=== PATIENT | male | born 1985 | race American Indian/Alaskan Native ===

== ENCOUNTER 2020-06-21 20:29 | Emergency (ER) | payer SELFPAY ==
[2020-06-22] MEDS ORDERED: ACETAMINOPHEN 325 MG TAB ONE (02:46)
[2020-06-22] MEDS ORDERED: ACETAMINOPHEN 325 MG TAB PO ONE (02:47)
[2020-06-22 04:57] VITALS: BP 122/87
[2020-06-22] MEDS ORDERED: dexAMETHasone 20 MG/5 ML VIAL IM ONE (05:49)
[2020-06-22] MEDS ORDERED: KETOROLAC 60 MG/2 ML INJ IM ONE (05:49)
--- NOTE | 2020-06-22 05:54 | Emergency Department Report ---
ED Back Pain/Injury HPI - General Chief Complaint: Back Pain/Injury Stated Complaint: LOWER BACK PAIN LT LEG PAIN Source: patient Limitations: No Limitations - History of Present Illness Initial Comments: Patient is a 34-year-old -[place] male with no past medical history who presents to the ED with complaint of acute onset persistent nontraumatic low back pain that radiates to the left hip and left leg for the last 4 days worse in the last 2 days. Patient states that he has not been able to sleep because of severe pain in the low back and left leg. Patient states that the pain is worse with any movement. Patient denies fall, traumatic injury, heavy lifting, nausea, vomiting, hematuria, testicular pain, dysuria, urinary frequency and urgency, fever, chills, cough, neck pain, numbness and tingling or weakness of lower extremities bilaterally, urinary and bowel incontinence or saddle paresthesia. MD Complaint: back pain (Low back pain that radiates to the left leg) -: Sudden, days(s) (4) Similar Symptoms Previously: No Place: home Radiation: left leg Severity: severe Severity scale (0 -10): 8 Quality: sharp, aching Consistency: constant Improves With: none Worsens With: movement, sitting upright, walking Context: turning/twisting Associated Symptoms: denies other symptoms. denies: confusion, chest pain, numbness, difficulty walking, cough, difficulty urinating, diaphoresis, incontinence, constipation, abdominal pain, loss of appetite, nausea/vomiting, rash, seizure, syncope - Related Data Previous Rx's Medication Instructions Recorded Last Taken Type Ibuprofen [Motrin] 800 mg PO Q8HR PRN #20 tablet 01/19/16 Unknown Rx Naproxen 500 mg PO Q12H PRN #30 tablet 06/22/20 Unknown Rx methOCARBAMOL [Robaxin TAB] 750 mg PO Q8H PRN #30 tablet 06/22/20 Unknown Rx predniSONE [Deltasone] 60 mg PO QDAY #15 tab 06/22/20 Unknown Rx traMADoL [Ultram] 50 mg PO Q6HR PRN #12 tablet 06/22/20 Unknown Rx Allergies Allergy/AdvReac Type Severity Reaction Status Date / Time No Known Allergies Allergy Verified 06/22/20 02:58 ED Review of Systems ROS: Stated complaint: LOWER BACK PAIN LT LEG PAIN Other details as noted in HPI Constitutional: denies: chills, fever Eyes: denies: eye pain, eye discharge, vision change ENT: denies: ear pain, throat pain Respiratory: denies: cough, shortness of breath, wheezing Cardiovascular: denies: chest pain, palpitations Endocrine: no symptoms reported Gastrointestinal: denies: abdominal pain, nausea, diarrhea Genitourinary: denies: urgency, dysuria Musculoskeletal: back pain (Low back pain), arthralgia (Left leg pain). denies: joint swelling Skin: denies: rash, lesions Neurological: denies: headache, weakness, paresthesias Psychiatric: denies: anxiety, depression Hematological/Lymphatic: denies: easy bleeding, easy bruising ED Past Medical Hx - Past Medical History Previous Medical History?: No - Surgical History Past Surgical History?: No - Social History Smoking Status: Light Tobacco Smoker Substance Use Type: None - Medications Home Medications: Home Medications Medication Instructions Recorded Confirmed Last Taken Type Ibuprofen [Motrin] 800 mg PO Q8HR PRN #20 tablet 01/19/16 Unknown Rx Naproxen 500 mg PO Q12H PRN #30 tablet 06/22/20 Unknown Rx methOCARBAMOL [Robaxin TAB] 750 mg PO Q8H PRN #30 tablet 06/22/20 Unknown Rx predniSONE [Deltasone] 60 mg PO QDAY #15 tab 06/22/20 Unknown Rx traMADoL [Ultram] 50 mg PO Q6HR PRN #12 tablet 06/22/20 Unknown Rx ED Physical Exam - General Limitations: No Limitations General appearance: alert, in no apparent distress - Head Head exam: Present: atraumatic, normocephalic, normal inspection - Eye Eye exam: Present: normal appearance, PERRL, EOMI Pupils: Present: normal accommodation - ENT ENT exam: Present: normal exam, normal orophraynx, mucous membranes moist, TM's normal bilaterally, normal external ear exam - Neck Neck exam: Present: normal inspection, full ROM - Respiratory Respiratory exam: Present: normal lung sounds bilaterally. Absent: respiratory distress, wheezes, rales, rhonchi, chest wall tenderness, accessory muscle use, decreased breath sounds, prolonged expiratory - Cardiovascular Cardiovascular Exam: Present: regular rate, normal rhythm, normal heart sounds. Absent: systolic murmur, diastolic murmur, rubs, gallop - GI/Abdominal GI/Abdominal exam: Present: soft, normal bowel sounds. Absent: tenderness, guarding, rebound, hyperactive bowel sounds, hypoactive bowel sounds, organomegaly - Extremities Exam Extremities exam: Present: normal inspection, full ROM, tenderness (Palpable left hip and knee tenderness), normal capillary refill - Back Exam Back exam: Present: normal inspection, full ROM, tenderness (Palpable lumbosacral paraspinal musculoskeletal tenderness), muscle spasm, paraspinal tenderness. Absent: CVA tenderness (L), vertebral tenderness - Neurological Exam Neurological exam: Present: alert, oriented X3, CN II-XII intact, normal gait, reflexes normal - Psychiatric Psychiatric exam: Present: normal affect, normal mood - Skin Skin exam: Present: warm, dry, intact, normal color. Absent: rash ED Course Vital Signs 06/21/20 06/22/20 23:16 02:49 Temperature 97.7 F Pulse Rate 86 Respiratory 18 18 Rate Blood Pressure 122/87 O2 Sat by Pulse 98 Oximetry ED Medical Decision Making - Medical Decision Making This is a 34-year-old -[place] male with no past medical history who presents to the ED with complaint of acute onset persistent nontraumatic low back pain that radiates to the left hip and left leg for the last 4 days worse in the last 2 days. Patient states that he has not been able to sleep because of severe pain in the low back and left leg. Patient states that the pain is worse with any movement. In the ED, patient is alert and oriented x3 and is not in distress. Patient was treated for pain in the ED and based on the history and physical exam findings, the patient was discharged home on pain medications and advised to follow-up with his primary care physician in 7 to 10 days for reevaluation or return to the ED immediately if symptoms get worse. - Differential Diagnosis Muscle spasm; muscle strain; sciatica; Critical care attestation.: If time is entered above; I have spent that time in minutes in the direct care of this critically ill patient, excluding procedure time. ED Disposition Clinical Impression: Spasm of muscle of lower back Acute low back pain with left-sided sciatica Qualifiers: Back pain laterality: left Qualified Code(s): M54.42 - Lumbago with sciatica, left side Disposition: TO HOME OR SELFCARE Is pt being admited?: No Does the pt Need Aspirin: No Condition: Stable Instructions: Muscle Cramps and Spasms, [id number], Sciatica, [id number], Acute Back Pain, Adult Additional Instructions: Take medication with food, drink plenty of fluids and follow-up with your primary care physician in 7 to 10 days for reevaluation. Return to the ED immediately if symptoms get worse. Prescriptions: predniSONE [Deltasone] 60 mg PO QDAY #15 tab Naproxen 500 mg PO Q12H PRN #30 tablet PRN Reason: Pain , Severe (7-10) methOCARBAMOL [Robaxin TAB] 750 mg PO Q8H PRN #30 tablet PRN Reason: Muscle Spasm traMADoL [Ultram] 50 mg PO Q6HR PRN #12 tablet PRN Reason: Pain Referrals: [facility] [Provider Group] - 3-5 Days Time of Disposition: 05:54 Print Language: DANISH
== END 2020-06-22 06:30 | disposition home or self-care (01) ==
LOC: ED 20:29
DX: M62.830 Muscle spasm of back (principal); F17.200 Nicotine dependence, unspecified, uncomplicated; Z79.899 Other long term (current) drug therapy
CPT/HCPCS: 96372; 99282; J1100; J1885